=== PATIENT | male | born 1985 | race Caucasian/White ===

== ENCOUNTER → 2023-05-16 14:41 | Outpatient (REF) | payer BC, SELFPAY ==
[2023-05-20 08:48] LABS: HPV, High Risk Not Detected; HPV, High Risk Source Anal
== END ==
LOC: CLAB 14:41
PROVIDERS: ATTENDING PHYSICIAN Surgery
DX: Z91.89 Other specified personal risk factors, not elsewhere classified (principal)
CPT/HCPCS: 87624; 88112